=== PATIENT | female | born 1970 | race Caucasian/White ===

== ENCOUNTER → 2021-12-26 | Outpatient (CLI) | payer OTHER | END | disposition home or self-care (01) | LOC: RAD 16:00 | PROVIDERS: ATTEND Chiropractor Orthopedic | DX: S33.5XXA Sprain of ligaments of lumbar spine, initial encounter (principal); X58.XXXA Exposure to other specified factors, initial encounter; Y93.89 Activity, other specified; Y92.89 Other specified places as the place of occurrence of the external cause; Y99.8 Other external cause status ==

== ENCOUNTER → 2022-01-07 | Outpatient (CLI) | payer OTHER | END | disposition home or self-care (01) | LOC: RAD 12:25 | PROVIDERS: ATTEND Chiropractor Orthopedic | DX: S33.5XXA Sprain of ligaments of lumbar spine, initial encounter (principal); X58.XXXA Exposure to other specified factors, initial encounter; Y93.89 Activity, other specified; Y92.89 Other specified places as the place of occurrence of the external cause; Y99.8 Other external cause status ==

== ENCOUNTER 2022-12-04 05:42 | Emergency (ER) | payer MEDICAID ==
[~2022-12-04] VITALS: Ht 162.5 cm; Wt 76.2 kg
[2022-12-04 06:03] VITALS: BP 142/83
[2022-12-04 06:49] LABS: BILIRUBIN Negative (Negative); BLOOD 1+ (Negative); CLARITY Turbid (Clear); COLOR Yellow (Yellow); GLUCOSE Negative (Negative); KETONE Trace (Negative); LEUKO ESTERASE Trace (Negative); NITRITE Negative (Negative); PH 5.5 (4.5-8.0); SPECIFIC GRAVITY 1.025 (1.001-1.030)
[2022-12-04 06:50] LABS: BASO % 0.5 % (0.0-1.0); EOS % 0.3 % (1.0-4.0); LYMPH % 13.4 % (27.0-41.0); MEAN CELL VOLUME 83.2 fl (81.0-99.0); MEAN CORPUSCULAR HGB 27.9 pg (27.0-31.0); MEAN CORPUSCULAR HGB CONC 33.6 g/dl (33.0-37.0); MEAN PLATELET VOLUME 9.7 fl (9.6-12.3); MONO # 0.6 10*3/uL (0.1-1.0); NEUT % 77.5 % (47.0-73.0); PLATELET COUNT AUTOMATED 345 10*3/uL (130-400); RED BLOOD COUNT 5.05 10*6/uL (4.10-5.10); RED CELL DISTRI WIDTH 14.9 % (0-14.5); WHITE BLOOD COUNT 7.8 10*3/uL (4.8-10.8)
[2022-12-04 07:04] LABS: ACT PARTIAL THROMBO TIME 29.1 SECONDS (20.0-32.1)
[2022-12-04 07:14] LABS: ALKALINE PHOSPHATASE 84 U/L (46-116); BUN 6 mg/dl (9-23); CHLORIDE 104 mmol/L (98-107); LIPASE 34 U/L (12-53); POTASSIUM 3.8 mmol/L (3.4-5.1); SGPT/ALT 10 U/L (10-49); TOTAL PROTEIN 7.3 gm/dL (6.0-8.0)
[2022-12-04 07:18] LABS: BACTERIA 2+; EPITHELIAL CELLS 16-20; RBC 21-30 rbc/hpf (0-2)
[2022-12-04] MEDS ORDERED: CIPRO500 MG PO (09:00)
[2022-12-04] MEDS ORDERED: MELOXICAM15 MG PO (09:00)
== END 2022-12-04 10:06 | disposition home or self-care (01) ==
LOC: ED 05:42
PROVIDERS: Internal Medicine
DX: M79.10 Myalgia, unspecified site (principal); R68.83 Chills (without fever); Z87.891 Personal history of nicotine dependence